=== PATIENT | female | born 2005 | race Caucasian/White ===

== ENCOUNTER 2023-11-30 14:56 | Day surgery (SDC) | payer OTHER ==
[2023-11-30] MEDS ORDERED: hydrALAZINE 20 MG/ML VIAL SLOW IVP PRN (15:48)
[2023-11-30 16:16] LABS: #Basophils 0.04 10x3/uL (0.0-0.2); #Eosinophils 0.02 10x3/uL (0.0-0.5); #Monocytes 0.69 10x3/uL (0.0-1.1); #Neutrophils 11.23 10x3/uL (1.5-8.4); %Basophils 0.3 % (0.0-2.0); %Eosinophils 0.2 % (0.0-6.0); %Lymphocytes 6.8 % (18.0-47.0); %Monocytes 5.3 % (0.0-10.0); %Neutrophils 86.7 % (40.0-75.0); Hemoglobin 11.9 g/dL (12.0-15.5); Mean Corpuscular Hemoglobin 31.5 pg (27.0-33.0); Mean Corpuscular Volume 89.9 fL (81.6-98.3); Mean Platelet Volume 9.5 fL (7.4-10.4); Platelet Count 268 10x3/uL (150-450); RBC Distribution Width 12.8 % (11.5-14.5); Red Blood Cell (RBC) Count 3.78 10x6/uL (3.90-5.03)
[2023-11-30 16:36] LABS: ALT (SGPT) 11 U/L (8-55); AST (SGOT) 14 U/L (5-30); Albumin 3.3 g/dL (3.5-5.0); Alkaline Phosphatase 67 U/L (40-100); Anion Gap 15 mmol/L (10-20); BUN (Urea Nitrogen) 8 mg/dL (8.4-21.0); Bilirubin, Total 0.4 mg/dL (0.2-1.2); Calc. Creatinine Clearance 0 mL/min (70-130); Calcium 9.2 mg/dL (7.8-10.44); Carbon Dioxide 20 mmol/L (22-29); Chloride 108 mmol/L (98-107); Estimated GFR 131; Globulin 3.4 g/dL (2.4-3.5); Glucose 84 mg/dL (70-105); Potassium 3.5 mmol/L (3.5-5.1); Protein, Total 6.7 g/dL (6.0-8.3); Sodium 139 mmol/L (136-145)
[2023-11-30 16:48] VITALS: BMI 24.2
[2023-11-30] MEDS: Ondansetron PF 4 MG/2 ML Vial IVP SCH (16:58)
[2023-11-30 17:05] LABS: Bilirubin Neg (Negative); Blood, Urine Negative (Negative); Clarity Clear (Clear); Glucose, Urine (Dipstick) Normal (Negative); Ketone, Urine 150 mg/dL (Negative); Leukocyte Negative (Negative); Nitrite Negative (Negative); Protein, Urine (Dipstick) 15 mg/dl (Neg-Trace); Urobilinogen Normal mg/dL (Less than 2)
[2023-11-30 17:15] LABS: Bacteria/HPF 1+ HPF (None Seen); CAUTI Indications for Culture Pregnancy; Mucous/LPF 1+ LPF (<2+); RBC/HPF 0-3 HPF (0-3); Squamous Epithelial 0-3 HPF (0-3); WBC/HPF 0-3 HPF (0-3)
[2023-11-30 17:16] LABS: Urine Culture Reflex No No; Urine Culture Reflex Yes Yes
[2023-11-30] MEDS: Meclizine HCl 12.5 MG TAB PO SCH (17:37)
== END 2023-11-30 20:25 | disposition home or self-care (01) ==
LOC: CSHLD/OP 14:56
PROVIDERS: ATTEND Family Medicine
DX: O99.891 Other specified diseases and conditions complicating pregnancy (principal); H81.10 Benign paroxysmal vertigo, unspecified ear; R10.11 Right upper quadrant pain; Z79.899 Other long term (current) drug therapy; Z98.890 Other specified postprocedural states; Z90.89 Acquired absence of other organs; Z3A.24 24 weeks gestation of pregnancy
CPT/HCPCS: 80053; 81001; 85025; 87086; 96360; 99283; J2405

== ENCOUNTER 2023-12-05 15:00 | Emergency (ER) | payer OTHER ==
[2023-12-05] MEDS ORDERED: Ondansetron PF 4 MG/2 ML Vial ONE (15:39)
[2023-12-05 16:11] LABS: #Basophils 0.03 10x3/uL (0.0-0.2); #Eosinophils 0.05 10x3/uL (0.0-0.5); #Monocytes 0.89 10x3/uL (0.0-1.1); #Neutrophils 10.77 10x3/uL (1.5-8.4); %Basophils 0.2 % (0.0-2.0); %Eosinophils 0.4 % (0.0-6.0); %Lymphocytes 9.4 % (18.0-47.0); %Monocytes 6.8 % (0.0-10.0); %Neutrophils 82.6 % (40.0-75.0); Hematocrit 34.9 % (34.9-44.5); Hemoglobin 11.7 g/dL (12.0-15.5); Mean Corpuscular HGB CONC 33.5 g/dL (32.0-36.0); Mean Corpuscular Hemoglobin 30.3 pg (27.0-33.0); Mean Corpuscular Volume 90.4 fL (81.6-98.3); Mean Platelet Volume 9.7 fL (7.4-10.4); Platelet Count 305 10x3/uL (150-450); RBC Distribution Width 12.6 % (11.5-14.5); Red Blood Cell (RBC) Count 3.86 10x6/uL (3.90-5.03)
[2023-12-05 16:14] LABS: Bilirubin Neg (Negative); Blood, Urine Negative (Negative); Clarity Slightly Cloudy (Clear); Glucose, Urine (Dipstick) Normal (Negative); Ketone, Urine 5 mg/dL (Negative); Leukocyte 25 (Negative); Nitrite Negative (Negative); Protein, Urine (Dipstick) 30 mg/dl (Neg-Trace); Urobilinogen Normal mg/dL (Less than 2)
[2023-12-05 16:24] LABS: ALT (SGPT) 19 U/L (8-55); AST (SGOT) 23 U/L (5-30); Albumin 3.3 g/dL (3.5-5.0); Alkaline Phosphatase 68 U/L (40-100); Anion Gap 14 mmol/L (10-20); BUN (Urea Nitrogen) 8 mg/dL (8.4-21.0); Bilirubin, Total 0.3 mg/dL (0.2-1.2); Calc. Creatinine Clearance 0 mL/min (70-130); Calcium 9.6 mg/dL (7.8-10.44); Carbon Dioxide 22 mmol/L (22-29); Chloride 105 mmol/L (98-107); Estimated GFR 130; Glucose 96 mg/dL (70-105); Lipase 33 U/L (8-78); Potassium 3.6 mmol/L (3.5-5.1); Protein, Total 7.3 g/dL (6.0-8.3); Sodium 137 mmol/L (136-145)
[2023-12-05 16:52] LABS: Bacteria/HPF 3+ HPF (None Seen); CAUTI Indications for Culture Pelvic or flank pain; Mucous/LPF 4+ LPF (<2+); RBC/HPF 0-3 HPF (0-3)
[2023-12-05 16:53] LABS: Urine Culture Reflex No No
== END 2023-12-05 18:01 | disposition home or self-care (01) ==
LOC: CSHERS 15:00
DX: O99.891 Other specified diseases and conditions complicating pregnancy (principal); R10.9 Unspecified abdominal pain; R42 Dizziness and giddiness; Z3A.25 25 weeks gestation of pregnancy
CPT/HCPCS: 80053; 81001; 83690; 84702; 85025; 87086; 93005; 96361; 96374; J2405

== ENCOUNTER 2024-03-05 12:03 | Inpatient (IN) | payer OTHER ==
[2024-03-05] MEDS ORDERED: hydrALAZINE 20 MG/ML VIAL SLOW IVP PRN ×3 (12:28→17:15)
[2024-03-05 13:18] VITALS: BMI 28.3
[2024-03-05 13:56] LABS: Hematocrit 33.1 % (34.9-44.5); Hemoglobin 10.8 g/dL (12.0-15.5); Mean Corpuscular HGB CONC 32.6 g/dL (32.0-36.0); Mean Corpuscular Hemoglobin 27.3 pg (27.0-33.0); Mean Corpuscular Volume 83.8 fL (81.6-98.3); Mean Platelet Volume 11.3 fL (7.4-10.4); Platelet Count 229 10x3/uL (150-450); RBC Distribution Width 13.1 % (11.5-14.5); Red Blood Cell (RBC) Count 3.95 10x6/uL (3.90-5.03)
[2024-03-05 14:22] LABS: ALT (SGPT) Less than 7 U/L (Less than 34); AST (SGOT) 15 U/L (11-34); Albumin 2.7 g/dL (3.1-4.5); Alkaline Phosphatase 170 U/L (40-100); Anion Gap 12 mmol/L (10-20); BUN (Urea Nitrogen) 9 mg/dL (7.0-18.7); Bilirubin, Total 0.3 mg/dL (0.3-1.2); Calc. Creatinine Clearance 151 mL/min (70-130); Calcium 8.8 mg/dL (7.8-10.44); Carbon Dioxide 19 mmol/L (22-29); Chloride 111 mmol/L (98-107); Estimated GFR 127; Globulin 3.6 g/dL (2.4-3.5); Glucose 78 mg/dL (70-105); Potassium 3.8 mmol/L (3.5-5.1); Protein, Total 6.3 g/dL (6.0-8.3); Sodium 138 mmol/L (136-145)
[2024-03-05 14:28] LABS: Creatinine, Urine 115.09 mg/dL (47-110)
[2024-03-05] MEDS: Acetaminophen 500 MG TAB PO SCH (15:33)
[2024-03-05] MEDS ORDERED: Promethazine HCl 25 MG/ML VIAL IM PRN (17:15)
[2024-03-05] MEDS ORDERED: Diphenoxylate HCl/Atropine Tablet PO PRN (17:16)
[2024-03-05] MEDS ORDERED: Carboprost 250 MCG/ML AMP IM PRN (17:16)
[2024-03-05] MEDS ORDERED: Tranexamic Acid 1,000 MG/10 ML VIAL IVP PRN (17:16)
[2024-03-05] MEDS ORDERED: Oxytocin 30 units/NS 500 ML 500 ML IV SCH (17:30)
[2024-03-05 17:57] LABS: HBsAg Index 0.18 S/CO (0-0.99); Hep B Surf Ag - L&D Non-Reactive S/CO (NonReactive)
[2024-03-05 17:58] LABS: Syphilis Antibody Nonreactive (Nonreactive); Syphilis Antibody Index 0.03 S/CO (<1.00 Non-Reactive)
[2024-03-05] MEDS: Misoprostol 100 MCG TAB VAG SCH (20:59)
[2024-03-06] MEDS ORDERED: Lactated Ringer's 500 ML IV PRN (03:26)
[2024-03-06] MEDS ORDERED: Naloxone HCl 0.4 mg/ml Vial IVP PRN ×2 (03:26)
[2024-03-06] MEDS ORDERED: Moisturizing Cream (Eucerin) 113 GM JAR TOP PRN (03:26)
[2024-03-06] MEDS ORDERED: diphenhydrAMINE 50 MG/ML VIAL IVP PRN (03:26)
[2024-03-06] MEDS ORDERED: Acetaminophen 325 MG TAB PO PRN (03:26)
[2024-03-06] MEDS ORDERED: Promethazine HCl 25 MG/ML VIAL IM PRN (03:26)
[2024-03-06] MEDS ORDERED: ePHEDrine Sulfate 50 MG/10 ML VIAL SLOW IVP PRN (03:26)
[2024-03-06] MEDS ORDERED: Ondansetron PF 4 MG/2 ML Vial IVP PRN (03:26)
[2024-03-06] MEDS ORDERED: Communication Order-Pharmacy FS SCH (03:30)
[2024-03-06] MEDS ORDERED: fentaNYL 2 mcg/Ropivacaine 0.2% Epidural 100 ML CADD EPIDURAL SCH (03:30)
[2024-03-06] MEDS ORDERED: Lanolin Ointment 7 GM TUBE TOP PRN (11:10)
[2024-03-06] MEDS ORDERED: Methylergonovine 0.2 MG TAB PO PRN (11:10)
[2024-03-06] MEDS ORDERED: Boostrix 0.5 ML (Tdap) VIAL (>/=7 yrs of age) IM ONE (11:10)
[2024-03-06] MEDS ORDERED: Milk Of Magnesia 30 ML UDCUP PO PRN (11:10)
[2024-03-06] MEDS ORDERED: Methylergonovine 0.2 MG/ML VIAL IM PRN (11:10)
[2024-03-06] MEDS ORDERED: Preparation H Ointment 28 GM TUBE PR PRN (11:10)
[2024-03-06] MEDS ORDERED: Benzocaine-Menthol 82.5 ML CAN TOP PRN (11:10)
[2024-03-06] MEDS ORDERED: Misoprostol 200 MCG TAB VAG PRN (11:10)
[2024-03-06] MEDS ORDERED: Bisacodyl 10 MG SUPP PR PRN (11:10)
[2024-03-06] MEDS ORDERED: Acetaminophen/Codeine 30-300mg Tablet PO PRN (11:10)
[2024-03-06] MEDS: Ondansetron PF 4 MG/2 ML Vial IVP PRN (11:11)
[2024-03-06] MEDS: Oxytocin 30 units/NS 500 ML 500 ML IV SCH (11:11)
[2024-03-06] MEDS: Misoprostol 200 MCG TAB PR PRN (11:14)
[2024-03-06] MEDS ORDERED: Oxytocin 30 units/NS 500 ML 500 ML IV SCH (11:15)
[2024-03-06] MEDS ORDERED: Bupivacaine/Epinephrine 0.25% 30 ML VIAL ONE (13:00)
[2024-03-06] MEDS ORDERED: Bupivacaine PF 0.5% 30 ML VIAL ONE (13:00)
[2024-03-06] MEDS: Ferrous Sulfate 325 MG TAB PO SCH (17:17)
[2024-03-06] MEDS: Ibuprofen 800 MG TAB PO SCH (17:21)
[2024-03-06] MEDS: Docusate 100 MG CAP PO SCH (20:55)
[2024-03-06] MEDS: fentaNYL/Ropivacaine Epidural 100 ML ONE (23:04)
[2024-03-07] MEDS: Ibuprofen 800 MG TAB PO SCH (01:29)
[2024-03-07] MEDS: Prenatal Vitamin 1 TAB PO SCH (09:33)
[2024-03-07 12:10] VITALS: BP 116/72; TEMP 97.8
== END 2024-03-07 14:55 | disposition home or self-care (01) | DRG 807 ==
LOC: CSHLD/OP 12:03 → CSHLD 17:36 → CSHPP 03-06 14:45
PROVIDERS: ADMIT Family Medicine; ATTEND Family Medicine
PROC: 10E0XZZ Delivery of Products of Conception, External Approach (ICD-10-PCS; principal; 2024-03-06)
PROC: 0UQMXZZ Repair Vulva, External Approach (ICD-10-PCS; 2024-03-06)
PROC: 10907ZC Drainage of Amniotic Fluid, Therapeutic from Products of Conception, Via Natural or Artificial Opening (ICD-10-PCS; 2024-03-06)
DX: O13.4 Gestational [pregnancy-induced] hypertension without significant proteinuria, complicating childbirth (principal); Z37.0 Single live birth; Z3A.38 38 weeks gestation of pregnancy; O26.893 Other specified pregnancy related conditions, third trimester; Z67.41 Type O blood, Rh negative; O70.0 First degree perineal laceration during delivery; Z14.1 Cystic fibrosis carrier
CPT/HCPCS: 36415; 51702; 80053; 82570; 84156; 85027; 86780; 86850; 86900; 86901; 87340; 99285; J0665; J2405; J2590